=== PATIENT | male | born 2000 | race Caucasian/White ===

== ENCOUNTER 2020-12-05 07:22 | Emergency (ER) | payer BC ==
[~2020-12-05] VITALS: Ht 172.7 cm; Wt 81.6 kg
[2020-12-05] MEDS ORDERED: CEPHALEXIN500 M1 PO (07:39)
[2020-12-05] MEDS ORDERED: AMOX-CLAV 875-1 EACH PO (14:20)
[2020-12-05] MEDS ORDERED: HIBICLENS118 ML TOP (14:20)
[2020-12-05] MEDS ORDERED: MUPIROCIN1 G1 TOP (14:20)
== END 2020-12-05 14:27 | disposition home or self-care (01) ==
LOC: ER 07:22
DX: L03.115 Cellulitis of right lower limb (principal)